=== PATIENT | male | born 1985 | race Caucasian/White ===

== ENCOUNTER 2016-08-15 15:32 | Emergency (ER) ==
[2016-08-15 15:58] LABS: BASO% 0.1 % (0.0-0.8); HEMATOCRIT 46.6 % (42.0-52.0); HEMOGLOBIN 16.1 g/dL (14.0-18.0); IMM GRAN# 0.02 X1000 (0.0-0.04); IMM GRAN% 0.2 % (0.0-0.5); LYMPH# 0.34 X1000 (1.2-3.4); LYMPH% 3.3 % (20.5-51.1); MANUAL DIFF NEEDED? NO; MCH 28.4 PG (27-31); MCHC 34.5 g/dL (33-37); MCV 82.3 FL (81-99); MONO# 0.45 X1000 (0.11-0.59); MONO% 4.4 % (1.7-9.3); MPV 9.3 FL (7.4-10.4); PLT 216 X1000 (130-400); RBC 5.66 XMIL (4.7-6.1)
--- NOTE | 2016-08-15 18:12 | PROVIDER DOCUMENTATION ---
HPI-Abdominal Pain/GI Problem - General Chief Complaint: Abdominal Pain Stated Complaint: POSS DEHYDRATION Time Seen by Provider: 08/15/16 18:07 Source: patient Allergies/Adverse Reactions: Patient Allergies Allergy/AdvReac Type Severity Reaction Status Date / Time Penicillins Allergy Unknown Unknown Verified 08/15/16 15:39 - History of Present Illness-ABD Nature of Presenting Problems: 31 y/o WM c/o nausea, shaky, vomiting, near syncope x 15 hours. Pt states he ate at [employer] last night and ate some questionable pork and chicken, around 7 PM. Pt states one episode of vomiting, but vomited several times at 3 AM. Denies any diarrhea. Pt states fever/chills, RODRIGUEZ, body aches. Pt able to drink some gatorade, but has not eaten anything. Denies any influenza vaccine. Review of Systems - Adult - REVIEW OF SYSTEMS - ADULT Constitutional: reports: see HPI, chills, fever Eyes: reports: no symptoms reported. denies: blurred vision, double vision Ears, Nose, Mouth & Throat: reports: no symptoms reported. denies: ear pain, nose pain Cardiovascular: reports: no symptoms reported. denies: chest pain, palpitations Respiratory: reports: no symptoms reported. denies: cough, shortness of breath Gastrointestinal: reports: see HPI, nausea, vomiting. denies: abdominal pain, constipation, diarrhea Genitourinary: reports: no symptoms reported. denies: dysuria, frequency Musculoskeletal: reports: no symptoms reported. denies: joint pain, joint swelling Integumentary: reports: no symptoms reported. denies: nail changes, rash Neurological: reports: see HPI, headache/migraines. denies: numbness, paresthesia Psychiatric: reports: no symptoms reported Endocrine: reports: no symptoms reported. denies: cold intolerance, heat intolerance Hematologic/Lymphatic: reports: no symptoms reported. denies: easy bruising, prolonged bleeding Allergic/Immunologic: reports: no symptoms reported All Other Systems: Reviewed and Negative Past History - Adult - PAST MEDICAL HISTORY-ADULT Review of Records: reports: Nursing Assessment Review, Medications Reviewed Gastrointestinal: reports: other (umbilical hernia) - PRIOR SURGERIES/PROCEDURES Surgical/Procedure History: reports: other (nasal) - SOCIAL HISTORY Smoking: denies Alcohol Use Frequency: never Physical Exam-General - PHYSICAL EXAM-ADULT Initial Vital Signs Reviewed: Yes - CONSTITUTIONAL General Appearance: alert, mild distress - EYES Eyes: pink conjunctivae - HEAD, EARS, NOSE, MOUTH & THROAT HENMT: normocephalic/atraumatic, moist mucous membranes - NECK Neck: normal inspection - RESPIRATORY Respiratory: lungs clear, normal breath sounds. negative: crackles, rales, rhonchi, stridor, wheezing - CARDIOVASCULAR Cardiovascular: tachycardia. negative: regular rate, rhythm, bradycardia - GASTROINTESTINAL (ABDOMEN) Abdominal Exam: normal bowel sounds, soft, tenderness (umbilical and epigastric) . negative: distended, guarding, rigid, rebound, McBurney's point tenderness, Ruvalcaba's sign - MUSCULOSKELETAL Back Exam: no CVA tenderness Extremity: normal gait - SKIN Integumentary: normal color, normal turgor, warm/dry - NEUROLOGIC Neurologic: negative: aphasia - PSYCHIATRIC Psych/Mental Status: normal mood/affect, normal thought content, normal thought process, oriented x 3 Progress - PLAN OF CARE/RESULTS Progress/Plan/Lab Results: Laboratory Tests 08/15/16 08/15/16 08/15/16 15:39 15:39 15:39 WBC 10.19 RBC 5.66 Hgb 16.1 Hct 46.6 MCV 82.3 MCH 28.4 MCHC 34.5 RDW Std Deviation 12.6 Plt Count 216 MPV 9.3 Immature Gran % (Auto) 0.2 Neut % (Auto) 92.0 H Lymph % (Auto) 3.3 L Mcpherson % (Auto) 4.4 Eos % (Auto) 0.0 Baso % (Auto) 0.1 Immature Gran # (Auto) 0.02 Neut # (Auto) 9.37 H Lymph # (Auto) 0.34 L Mcpherson # (Auto) 0.45 Eos # (Auto) 0.00 Baso # (Auto) 0.01 Sodium 137 Potassium 4.4 Chloride 99 Carbon Dioxide 25 Anion Gap 13 BUN 18 Creatinine 1.1 Estimated GFR/1.73 m2 > 60 BUN/Creatinine Ratio 16 Glucose 141 H Calculated Osmolality 278 Calcium 8.8 Total Bilirubin 0.85 AST 20 ALT 29 Alkaline Phosphatase 98 Total Protein 6.6 Albumin 4.3 Globulin 2.3 Albumin/Globulin Ratio 1.9 Amylase 59 Lipase 24 Urine Source Urine Color Urine Turbidity Urine pH Ur Specific Muddy Urine Protein Ur Glucose (Stick) Ur Ketones (Stick) Urine Blood Urine Nitrite Urine Bilirubin Urobilinogen Dipstick Urine Leukocytes Urine WBC (Auto) Urine RBC (Auto) U Epithel Cells (Auto) Urine Bacteria (Auto) 08/15/16 18:25 WBC RBC Hgb Hct MCV MCH MCHC RDW Std Deviation Plt Count MPV Immature Gran % (Auto) Neut % (Auto) Lymph % (Auto) Mcpherson % (Auto) Eos % (Auto) Baso % (Auto) Immature Gran # (Auto) Neut # (Auto) Lymph # (Auto) Mcpherson # (Auto) Eos # (Auto) Baso # (Auto) Sodium Potassium Chloride Carbon Dioxide Anion Gap BUN Creatinine Estimated GFR/1.73 m2 BUN/Creatinine Ratio Glucose Calculated Osmolality Calcium Total Bilirubin AST ALT Alkaline Phosphatase Total Protein Albumin Globulin Albumin/Globulin Ratio Amylase Lipase Urine Source CLEAN CATCH Urine Color YELLOW Urine Turbidity CLEAR Urine pH 6.0 Ur Specific Muddy 1.012 Urine Protein NEGATIVE Ur Glucose (Stick) NEGATIVE Ur Ketones (Stick) NEGATIVE Urine Blood NEGATIVE Urine Nitrite NEGATIVE Urine Bilirubin NEGATIVE Urobilinogen Dipstick NORMAL Urine Leukocytes NEGATIVE Urine WBC (Auto) <10 Urine RBC (Auto) <10 U Epithel Cells (Auto) <10 Urine Bacteria (Auto) NEGATIVE Orders Category Date Time Status Saline Loc DIRECTED Care 08/15/16 15:37 Active NPO Diet 08/15/16 15:[address] ABD/PELVIS W/ IV CONT ONLY [CT] Stat Exams 08/15/16 19:23 Taken FLAT/UPRIGHT ABD/1 VIEW CHEST [RAD] Stat Exams 08/15/16 18:21 Taken AMYLASE [CHEM] Stat Lab 08/15/16 15:39 Completed CBC WITH ELECTRONIC DIFF [HEME] Stat Lab 08/15/16 15:39 Completed COMPREHENSIVE METABOLIC PANEL [CHEM] Stat Lab 08/15/16 15:39 Completed INFLUENZA SCREEN A/B Stat Lab 08/15/16 18:10 Completed LIPASE [CHEM] Stat Lab 08/15/16 15:39 Completed URINALYSIS W/POSS RFLX CULT [URINALYSIS] Stat Lab 08/15/16 18:25 Completed 0.9% Sodium Chloride Inj [Ns] 1,000 ml Med 08/15/16 18:53 Discontinued IV 999 mls/hr Acetaminophen [Tylenol] Med 08/15/16 19:01 Discontinued 650 mg .ROUTE .STK-MED ONE Acetaminophen [Tylenol] Med 08/15/16 19:09 Discontinued 650 mg PO NOW ONE Metronidazole [Flagyl] Med 08/15/16 20:55 Discontinued 500 mg PO NOW ONE Ondansetron Odt [Zofran Odt] Med 08/15/16 18:53 Discontinued 4 mg PO NOW ONE Vital Signs Temp Pulse Resp BP Pulse Ox 08/15/16 19:40 98.7 F 92 H 16 131/70 100 08/15/16 15:35 98.4 F 103 H 18 127/70 94 L Penicillins Allergy (Unknown, Verified 08/15/16 15:39) Unknown Ciprofloxacin HCl [Cipro] 500 mg PO BID #14 tablet 08/15/16 Metronidazole 500 mg PO BID #20 tablet 08/15/16 Promethazine [Phenergan] 25 mg PO Q6H PRN PRN #20 tablet 08/15/16 Dietary Diet NPO Start MonAug 15 1536 I&O 08/14/16 08/15/16 08/16/16 06:59 06:59 06:59 Output Total 20 Balance -20 Laboratory 08/15/16 08/15/16 08/15/16 18:25 15:39 15:39 WBC 10.19 RBC 5.66 Hgb 16.1 Hct 46.6 MCV 82.3 MCH 28.4 MCHC 34.5 RDW Std Deviation 12.6 Plt Count 216 MPV 9.3 Immature Gran % (Auto) 0.2 Neut % (Auto) 92.0 H Lymph % (Auto) 3.3 L Mcpherson % (Auto) 4.4 Eos % (Auto) 0.0 Baso % (Auto) 0.1 Immature Gran # (Auto) 0.02 Neut # (Auto) 9.37 H Lymph # (Auto) 0.34 L Mcpherson # (Auto) 0.45 Eos # (Auto) 0.00 Baso # (Auto) 0.01 Sodium 137 Potassium 4.4 Chloride 99 Carbon Dioxide 25 Anion Gap 13 BUN 18 Creatinine 1.1 Estimated GFR/1.73 m2 > 60 BUN/Creatinine Ratio 16 Glucose 141 H Calculated Osmolality 278 Calcium 8.8 Total Bilirubin 0.85 AST 20 ALT 29 Alkaline Phosphatase 98 Total Protein 6.6 Albumin 4.3 Globulin 2.3 Albumin/Globulin Ratio 1.9 Amylase Lipase 24 Urine Source CLEAN CATCH Urine Color YELLOW Urine Turbidity CLEAR Urine pH 6.0 Ur Specific Muddy 1.012 Urine Protein NEGATIVE Ur Glucose (Stick) NEGATIVE Ur Ketones (Stick) NEGATIVE Urine Blood NEGATIVE Urine Nitrite NEGATIVE Urine Bilirubin NEGATIVE Urobilinogen Dipstick NORMAL Urine Leukocytes NEGATIVE Urine WBC (Auto) <10 Urine RBC (Auto) <10 U Epithel Cells (Auto) <10 Urine Bacteria (Auto) NEGATIVE 08/15/16 15:39 WBC RBC Hgb Hct MCV MCH MCHC RDW Std Deviation Plt Count MPV Immature Gran % (Auto) Neut % (Auto) Lymph % (Auto) Mcpherson % (Auto) Eos % (Auto) Baso % (Auto) Immature Gran # (Auto) Neut # (Auto) Lymph # (Auto) Mcpherson # (Auto) Eos # (Auto) Baso # (Auto) Sodium Potassium Chloride Carbon Dioxide Anion Gap BUN Creatinine Estimated GFR/1.73 m2 BUN/Creatinine Ratio Glucose Calculated Osmolality Calcium Total Bilirubin AST ALT Alkaline Phosphatase Total Protein Albumin Globulin Albumin/Globulin Ratio Amylase 59 Lipase Urine Source Urine Color Urine Turbidity Urine pH Ur Specific Muddy Urine Protein Ur Glucose (Stick) Ur Ketones (Stick) Urine Blood Urine Nitrite Urine Bilirubin Urobilinogen Dipstick Urine Leukocytes Urine WBC (Auto) Urine RBC (Auto) U Epithel Cells (Auto) Urine Bacteria (Auto) Discussed pt with Dr. Valente; he agreed with d/c plan home. Discussed dx and tx with pt, including home care. - XRAY 1 XRAY Study: Chest, Abdomen XRAY Interpretation: NAD - CT/MRI 1 CT Study: Abdomen, Pelvis Impression: See EMR Report (No bowel obstruction. No abscess. No hydronephrosis. Moderately distended gallbaldder but no adjacent inflammation. Mild splenomegaly. Mildly prominent mesenteric nodes- suspect adenitis. - per Dr. Fitzpatrick) Departure - Departure Time of Disposition Order: 20:47 DIAGNOSIS: Mesenteric adenitis DIAGNOSIS: (Ruled Out): Influenza Disposition: HOME 01 Certified Medical Emergency: Emergent Condition: Stable Additional Instructions: Take medications as directed. Drink plenty of fluids. Follow up with PCP in 3- 5 days for recheck. Tylenol for any pain. ED Follow Up Instructions: You have been treated by a care provider in the Emergency Department. These instructions are being provided to you so you can have an understanding of how to care for yourself upon discharge. Upon discharge from the Emergency Department, you are responsible for making arrangements for follow-up care by a physician of your choice. Take all prescribed medications as directed. Return to the Emergency Department immediately for any new or worsening symptoms. You may call the Physician Referral phone number at [phone] to obtain a list of Physicians who are taking new patients. Prescriptions: Ciprofloxacin HCl [Cipro] 500 mg PO BID #14 tablet Metronidazole 500 mg PO BID #20 tablet Promethazine [Phenergan] 25 mg PO Q6H PRN PRN #20 tablet PRN Reason: Nausea Referrals: Avelino Graham [Primary Care Provider] - Attestation - Physician/ Mid-level Attestation Patient care was provided by Mid-level provider ([facility]/PA):: Yes Mid-level provider:: Anyi Abreu Mid-level documentation review:: The Mid-level provider documentation, treatment plan and medical decision making was reviewed by the physician who agrees with all treatment and medical decision making by the MLP.
[2016-08-15 18:37] LABS: URINE CULTURE NEEDED? NO; URINE MICRO REVIEW NEEDED? NO; URINE SOURCE CLEAN CATCH
[2016-08-15 18:48] LABS: BILIRUBIN URINE NEGATIVE (NEGATIVE); BLOOD URINE NEGATIVE (NEGATIVE); COLOR YELLOW; GLUCOSE URINE NEGATIVE (NEGATIVE); LEUKOCYTES URINE NEGATIVE (NEGATIVE); NITRITE URINE NEGATIVE (NEGATIVE); PROTEIN URINE NEGATIVE (NEGATIVE); SP GRAVITY URINE 1.012; TURBIDITY URINE CLEAR (CLEAR); UROBILINOGEN URINE NORMAL (NORMAL)
[2016-08-15 18:50] LABS: UR EPITHELIAL CELLS <10 /HPF (<10); URINE BACTERIA NEGATIVE /HPF; URINE RBC <10 /HPF (<10); URINE WBC <10 /HPF (<10)
[2016-08-15] MEDS ORDERED: ZOFRAN ODT PO ONE (18:53)
[2016-08-15] MEDS ORDERED: NS 1,000 ML IV ONE (18:53)
[2016-08-15 18:54] LABS: AGAP 13; ALBUMIN 4.3 g/dL (3.5-5.0); ALKALINE PHOSPHATASE 98 U/L (32-122); BUN 18 mg/dL (8-22); CALCIUM 8.8 mg/dL (8.8-10.2); CHLORIDE 99 mmol/L (98-107); COSMO 278; GOT 20 U/L (10-34); GPT 29 U/L (10-44); LIPASE 24 U/L (13-60); POTASSIUM 4.4 mmol/L (3.5-5.1); SODIUM 137 mmol/L (136-145); TCO2 25 mmol/L (25-35); TOTAL BILIRUBIN 0.85 mg/dL (0.20-1.00); TOTAL PROTEIN 6.6 g/dL (6.3-8.3)
[2016-08-15] MEDS ORDERED: TYLENOL ONE (19:01)
[2016-08-15] MEDS ORDERED: TYLENOL PO ONE (19:09)
[2016-08-15] MEDS ORDERED: FLAGYL PO ONE (20:55)
[2016-08-15 21:49] VITALS: BP 212/73
--- NOTE | 2016-08-16 08:31 | Diag Imaging Result Document ---
PROCEDURE NAME: CT ABD/PELVIS W/ IV CONT ONLY - 08/15/2016 CT ABDOMEN AND PELVIS WITH INTRAVENOUS CONTRAST. DOSE REDUCTION PROTOCOL: COMPARISON: No comparison films. FINDINGS: The spleen is mildly enlarged measuring 14.7 cm in length. There is a 1.9 cm left renal cyst. No other renal abnormalities. No hydronephrosis. Normal pancreas and adrenal glands. The gallbladder is moderately distended, but the wall it not thickened and there are not adjacent inflammatory changes. There is mild fatty infiltration of the liver and likely a tiny cyst near the dome of the diaphragm. Normal aorta. Mildly prominent scattered mesenteric lymph nodes. No bowel obstruction. No inflammation about the cecum. No abscess. There is a small amount of stool throughout the colon. The prostate is not enlarge. The urinary bladder is only moderately distended. IMPRESSION: 1. Mildly prominent mesenteric lymph nodes suspicious for mesenteric adenitis. 2. Mild splenomegaly. 3. Left renal cyst. 4. Fatty infiltration of the liver with likely tiny hepatic cysts. 5. Slight constipation. A preliminary report was given at 8:38 p.m. MTDD
--- NOTE | 2016-08-16 08:44 | Diag Imaging Result Document ---
PROCEDURE NAME: FLAT/UPRIGHT ABD/1 VIEW CHEST - 08/15/2016 FLAT AND UPRIGHT ABDOMEN: FINDINGS: There is stool throughout the colon. There is no evidence of small bowel or gastric distention. There is no evidence of organomegaly or mass. IMPRESSION: Constipation. PA CHEST: FINDINGS: There is no evidence of acute cardiac or pulmonary disease. No previous studies are available for comparison. IMPRESSION: No acute disease.
== END 2016-08-15 21:53 | disposition home or self-care (01) ==
LOC: ED 15:32
DX: I88.0 Nonspecific mesenteric lymphadenitis (principal); R16.1 Splenomegaly, not elsewhere classified; N28.1 Cyst of kidney, acquired; K76.0 Fatty (change of) liver, not elsewhere classified; K59.00 Constipation, unspecified; R10.9 Unspecified abdominal pain; R11.2 Nausea with vomiting, unspecified; R55 Syncope and collapse; R50.9 Fever, unspecified; R51 Headache; R52 Pain, unspecified; R10.816 Epigastric abdominal tenderness; R10.819 Abdominal tenderness, unspecified site
CPT/HCPCS: 74022; 74177; 80053; 81001; 82150; 83690; 85025; 87804; J7030; Q9967